=== PATIENT | female | born 1990 | race Two or more races ===

== ENCOUNTER → 2019-10-06 | Emergency (ER) | payer OTHER ==
[~2019-10-06] VITALS: Ht 152.4 cm; Wt 72.6 kg
[~2019-10-06] MED LIST: DUI500 PO; PEPCID AC20 MG PO; PRENATAL + DHA1 EAC1 PO
== END | disposition home or self-care (01) ==
LOC: ER 21:09
DX: O23.32 Infections of other parts of urinary tract in pregnancy, second trimester (principal); O26.892 Other specified pregnancy related conditions, second trimester; R10.2 Pelvic and perineal pain; Z03.818 Encounter for observation for suspected exposure to other biological agents ruled out; Z3A.16 16 weeks gestation of pregnancy